=== PATIENT | male | born 1985 | race Caucasian/White ===

== ENCOUNTER → 2021-03-17 | Outpatient (CLI) | payer OTHER ==
[~2021-03-17] MED LIST: IBUPROFEN200 MG PO
[2021-03-17 12:46] LABS: HEMOGLOBIN 14.6 gm/dl (14.0-17.5); RED BLOOD COUNT 4.85 M/UL (4.20-5.50); WHITE BLOOD COUNT 7.2 K/UL (4.5-11.0)
[2021-03-17 13:05] LABS: BUN/CREATININE RATIO 17 (0-10)
== END ==
LOC: EDSTATUS 11:30 → OPSV2 11:30
PROVIDERS: Orthopaedic Surgery
DX: Z01.818 Encounter for other preprocedural examination (principal)
CPT/HCPCS: 36415; 71046; 80048; 85027; 93005

== ENCOUNTER → 2021-03-23 | Outpatient (CLI) | payer OTHER ==
[~2021-03-23] MED LIST changes: +ELIQUIS 2.5 MG2.5 MG PO; +PERCOCET 7.5-31 EACH PO
[2021-03-23 11:33] LABS: BUN/CREATININE RATIO 19 (0-10)
== END ==
LOC: LAB 10:25
PROVIDERS: Orthopaedic Surgery
DX: Z01.812 Encounter for preprocedural laboratory examination (principal)
CPT/HCPCS: 36415; 80048; 86850; 86900; 86901

== ENCOUNTER 2021-03-24 09:27 | Day surgery (SDC) | payer OTHER ==
[~2021-03-24] VITALS: Ht 162.6 cm; Wt 94.8 kg
[~2021-03-24 09:27] MED LIST changes: -ELIQUIS 2.5 MG2.5 MG PO; -PERCOCET 7.5-31 EACH PO
[2021-03-24] MEDS ORDERED: PERCOCET 7.5-31 EACH PO (16:07)
[2021-03-25 06:46] LABS: HEMOGLOBIN 13.3 gm/dl (14.0-17.5); RED BLOOD COUNT 4.42 M/UL (4.20-5.50); WHITE BLOOD COUNT 10.3 K/UL (4.5-11.0)
[2021-03-25 07:20] LABS: BUN/CREATININE RATIO 18 (0-10)
[2021-03-25] MEDS ORDERED: ELIQUIS 2.5 MG2.5 MG PO (11:06)
== END 2021-03-25 13:50 | disposition home or self-care (01) ==
LOC: OR 09:27 → EDSTATUS 10:00 → OR 10:00 → M/S 16:35 → OR 03-25 13:50
PROVIDERS: Orthopaedic Surgery
DX: M16.12 Unilateral primary osteoarthritis, left hip (principal); M87.9 Osteonecrosis, unspecified; G89.29 Other chronic pain; Z20.822 Contact with and (suspected) exposure to COVID-19; Z87.891 Personal history of nicotine dependence
CPT/HCPCS: 36415; 72170; 73502; 76000; 80048; 85025; 97110-GP-CQ; 97116-GP-CQ; 97161; 97166; 97535; C1776; J0171; J0690; J1100; J1885; J2001; J2250; J2704; J2795; J3010; J3370; J7050; J7120